=== PATIENT | female | born 2000 | race Caucasian/White ===

== ENCOUNTER 2025-10-25 03:46 | Emergency (ER) | payer BC, SELFPAY ==
[2025-10-25 03:48] VITALS: BP 139/86
[2025-10-25] MEDS: MOTRIN 600 MG PO (04:07)
[2025-10-25] MEDS: TYLENOL 650 MG PO (04:07)
[2025-10-25 04:36] LABS: COVID-19 Antigen Negative (Negative)
--- NOTE | 2025-10-25 06:58 | EDRN ---
Dr. Thomas in room w/pt
[2025-10-25] MEDS: TYLENOL 325 MG PO (07:11)
[2025-10-25] MEDS: DELTASONE 50 MG PO (07:12)
[2025-10-25 07:13] VITALS: BMI 20.6
[2025-10-25 07:15] VITALS: BP 119/73
--- NOTE | 2025-10-25 07:27 | ED.GENMED ---
History of Present Illness
General
Chief Complaint: Cold/Flu/URI Symptoms
Source: patient and family (Father)
Exam Limitations: none
Time Seen by Provider: 10/25/25 06:43
Nursing documentation reviewed up to this point in time: agreed with
History of Present Illness
History of Present Illness:
24-year-old female with no reported chronic medical issues presents for evaluation of flulike illness. Patient reports that she has been sick for the past 4 days but symptoms were worse last night which prompted ER visit. She reports sore throat
as primary complaint but she has also had myalgias, fever/chills, mild cough and nasal congestion. Denies any chest pain or shortness of breath. Denies abdominal pain, nausea, vomiting, diarrhea. Denies known sick contacts.
Review of Systems
Review of Systems
All Other Systems: ROS reviewed and negative except as documented in HPI and ROS
Constitutional: Reports fever, fatigue and chills
EENT: Reports sore throat and other (Congestion)
Respiratory: Reports cough; Denies trouble breathing
Cardiac: Denies chest pain
ABD/GI: Denies abdominal pain, nausea, vomiting or diarrhea
Musculoskeletal: Reports muscle pain; Denies neck pain or back pain
Neurological: Denies headache
Phy Exam
Physical Exam
Physical Exam:
General: Awake, alert, oriented x3; no acute distress
Head: Normocephalic, atraumatic
Eyes: Conjunctiva normal, EOMI
Throat: Airway intact, handling secretions, mild tonsillar enlargement and erythema but no exudate, midline uvula
Neck: Trachea midline, supple without meningismus; bilateral anterior cervical chain adenopathy
Lungs: Clear to auscultation bilaterally, no wheezing, rales, rhonchi
Heart: Regular rate and rhythm, no murmurs, gallops, or rubs��tachycardia resolved by my assessment
Neuro: Grossly intact
Skin: Warm and dry
Extremities: No edema in extremities, warm and well-perfused
Scores
Heart Failure Risk
Heart Failure Risk Score: Not Applicable
Heart Score for Chest Pain Patients
STEMI patient?: Not applicable
Withdrawal Assessment of Alcohol
Withdrawal Assessment Completed?: Not applicable
Sepsis
Sepsis Screening
Sepsis Assessment: Sepsis Ruled Out
Sepsis Screen
Sepsis Screen: Sepsis Ruled Out
Date: 10/25/25
Time: 07:29
Course
Orders/Labs/Results
Orders:
Orders
10/25/25 03:59
COVID-19 Antigen Urgent
Source: Nasal Swab
Influenza A+B Rapid Molecular Urgent
AVA Source: Nasal Swab
Specimen Description:
Date Specimen was Collected: 10/25/25
Time Specimen was Collected: 03:55
Rapid Strep Group A Urgent
AVA Source: Throat/Pharynx
Specimen Description:
Date Specimen was Collected: 10/25/25
Time Specimen was Collected: 03:55
10/25/25 04:02
Acetaminophen [Tylenol] 650 mg .ROUTE .STK-MED ONE
Ibuprofen [Motrin] 600 mg .ROUTE .STK-MED ONE
10/25/25 04:06
Acetaminophen [Tylenol] 650 mg PO NOW STA
10/25/25 04:07
Ibuprofen [Motrin] 600 mg PO NOW STA
10/25/25 07:06
Acetaminophen [Tylenol] 325 mg PO NOW STA
Prednisone [Deltasone] 50 mg PO NOW STA
Vital Signs
Initial and Last Documented VS:
Initial Vital Signs
Temp Pulse Resp BP Pulse Ox
39.5 C H 142 18 139/86 98
10/25/25 03:48 10/25/25 03:48 10/25/25 03:48 10/25/25 03:48 10/25/25 03:48
Last Documented Vital Signs
Temp Pulse Resp BP Pulse Ox
37.3 C 86 9 139/86 100
10/25/25 05:56 10/25/25 05:53 10/25/25 05:53 10/25/25 03:48 10/25/25 05:55
MDM/Problems Addressed
Differential Diagnosis Includes:
Influenza, COVID, other viral syndrome
MDM/Problems Addressed:
24-year-old female presents for flulike illness. She presented febrile and tachycardic but this improved with Tylenol and ibuprofen. She is influenza A positive which accounts for her symptoms. Primary complaint was sore throat, nothing on exam
to suggest peritonsillar abscess or other complication of influenza. We can however treat with some prednisone as she had some tonsillar enlargement this may help with sore throat symptomatically. Advised Tylenol and ibuprofen [id number] for
good fever control and control of myalgias. She is outside window of benefit for Tamiflu. Stable for discharge at this point.
*Pulse Oximetry
SaO2: 100
Oxygen Mode of Delivery: Room air
Patient hypoxic: no (100%)
*Critical Care Note
Total Time (30-74mins, 75-104mins- exclusive of procedures): Not Applicable
Data Reviewed
Source: patient and family
ED Attending Note
-
Portions of this chart may have been created with voice recognition software.� Occasional wrong word or��sound alike� substitutions may have occurred due to the inherent limitations of voice recognition software.
Discharge Plan
Departure
Patient Disposition: Home (Routine Discharge)
Date of Disposition: 10/25/25
Time of Disposition: 07:08
Patient with high blood pressure during this ER visit?: Yes
Discharge Problem:
Influenza A
Instructions: Viral Upper Respiratory Infection, Adult (DC)
Prescriptions:
New
prednisone 50 mg tablet
50 mg PO DAILY Qty: 5 0RF
No Action
methylprednisolone [Medrol (Kyle)] 4 MG tablets,dose pack
4 tab PO . DIRECT Qty: 1 0RF
Referrals:
NONE,* [Family Provider, Internal Medicine]
Activity Restrictions/Additional Instructions:
You should take Tylenol and ibuprofen to control your fever. Your last dose of Tylenol was at 7 AM, last dose of ibuprofen was at 4 AM. You should alternate these medications�a each 1 can be taken every 6 hours and so they can be alternated every
3 hours. Use these to control fever and bodyaches. You also had sore throat and swollen tonsils and were prescribed a short course of steroids which should help with this. If you feel your symptoms are worsening or if you develop any new symptoms
that are concerning please return to the ER.
Interventions
Interventions:
*General Assessment Last Done: 10/25/25 07:16
*Neglect/Abuse Screening Last Done: 10/25/25 07:16
*ED COVID-19 Vaccine History Last Done: 10/25/25 07:16
*ED Influenza Vaccine History Last Done: 10/25/25 07:16
[facility] Risk Assessment Tool Last Done: 10/25/25 03:46
*Risk Screen - Suicide (C-SSRS) Last Done: 10/25/25 03:48
ED- Pulmonary Assessment Last Done: 10/25/25 05:55
Discharge Date and Time
Print Language: GREEK
== END 2025-10-25 07:25 | disposition home or self-care (01) ==
LOC: EMR 03:46
PROVIDERS: Emergency Medicine; EMERGENCY PHYSICIAN Emergency Medicine
DX: J10.1 Influenza due to other identified influenza virus with other respiratory manifestations (principal)
CPT/HCPCS: 99283; 87070; 87502; 87811; 87880